=== PATIENT | male | born 1995 | race Caucasian/White ===

== ENCOUNTER 2021-07-25 21:16 | Emergency (ER) | payer OTHER ==
[~2021-07-25 21:16] MED LIST: AMOXICILLIN500 M1 PO; BENTYL10 MG PO; ILOTYCIN1 GM OU; KEFLEX500 MG PO; NAPROXEN500 MG PO; NORCO 5-325 TA1 EACH PO; ONDANSETRON ODT4 MG SL; PRILOSEC20 MG PO; TESSALON PERLE100 M1 PO; ZOFRAN4 MG SL
[2021-07-25] MEDS ORDERED: NAPROXEN500 MG PO (22:07)
[2021-07-25] MEDS ORDERED: PREDNISONE 20MG20 MG PO (22:07)
[2021-07-25] MEDS ORDERED: CYCLOBENZAPRINE10 MG PO (22:07)
== END 2021-07-25 22:15 | disposition home or self-care (01) ==
LOC: FER 21:16
DX: S39.012A Strain of muscle, fascia and tendon of lower back, initial encounter (principal); M54.42 Lumbago with sciatica, left side; F17.200 Nicotine dependence, unspecified, uncomplicated; Z88.5 Allergy status to narcotic agent; Z88.8 Allergy status to other drugs, medicaments and biological substances; X50.9XXA Other and unspecified overexertion or strenuous movements or postures, initial encounter; Y93.89 Activity, other specified; Y92.89 Other specified places as the place of occurrence of the external cause; Y99.0 Civilian activity done for income or pay
CPT/HCPCS: 99283; J1885